=== PATIENT | female | born 1985 | race Two or more races ===

== ENCOUNTER 2022-11-21 11:14 | Emergency (ER) | payer BC, OTHER ==
[~2022-11-21] VITALS: Ht 170.2 cm; Wt 75.3 kg
[2022-11-21 11:53] LABS: Basophils # (auto) 0 10 ^3/uL (0-0.2); Basophils % (auto) 0.5 % (0.0-2.0); Eosinophils # (auto) 0 10 ^3/uL (0-0.8); Eosinophils % (auto) 0.5 % (0.0-7.0); Hematocrit 43.4 % (36.0-46.0); Hemoglobin 14.5 g/dL (12.2-16.2); Lymphocytes # (auto) 2.1 10 ^3/uL (0.4-5.4); Lymphocytes % (auto) 41.1 % (10.0-50.0); Mean Corpuscular Hgb Conc. 33.4 g/dL (32.0-36.0); Mean Corpuscular Volume 89.6 fL (80.0-100.0); Monocytes # (auto) 0.3 10 ^3/uL (0-1.3); Monocytes % (auto) 6.2 % (0.0-12.0); Neutrophils # (auto) 2.6 10 ^3/uL (1.6-8.6); Neutrophils % (auto) 51.7 % (37.0-80.0); Nucleated Red Blood Cells % 0.2 %; Red Blood Cells 4.85 10^6/uL (4.0-5.20); Red Cell Distribution Width 13.8 % (11.8-14.3)
[2022-11-21 11:58] LABS: Urine Bacteria FEW /hpf (None Seen); Urine Blood Negative /uL (Negative); Urine Clarity Clear (Clear); Urine Protein, UAD Negative (Negative); Urine Specific Gravity 1.004 (1.001-1.035); Urine Urobilinogen Normal (Negative); Urine WBC <1 /hpf (0 - 5)
[2022-11-21 12:06] LABS: Urine Color Straw (Yellow)
[2022-11-21 12:59] LABS: Albumin 4.5 g/dL (3.4-5.0); Calcium 9.6 mg/dL (8.5-10.1); Magnesium 2.3 mg/dL (1.6-2.6); Potassium 3.9 mmol/L (3.5-5.1)
[2022-11-21 13:02] LABS: Bilirubin, Total 0.4 mg/dL (0.2-1.0)
[2022-11-21] MEDS ORDERED: CYCL-838 PO (13:54)
[2022-11-21] MEDS ORDERED: DICL50TA2 PO (13:54)
[2022-11-21] MEDS ORDERED: DIA5T PO (15:40)
[2022-11-21 16:03] VITALS: BP 124/72; PULSE 85; RESP 18; TEMP 97.9; O2SAT 96
== END 2022-11-21 16:06 | disposition home or self-care (01) ==
LOC: ER 11:14
DX: R07.89 Other chest pain (principal); F41.9 Anxiety disorder, unspecified; E28.2 Polycystic ovarian syndrome; R11.0 Nausea; G43.909 Migraine, unspecified, not intractable, without status migrainosus; Z98.890 Other specified postprocedural states; Z87.891 Personal history of nicotine dependence; Z79.899 Other long term (current) drug therapy
CPT/HCPCS: 36415; 71045; 80053; 81001; 83735; 84484; 85025; 93005